=== PATIENT | male | born 1960 | race Caucasian/White ===

== ENCOUNTER 2016-10-10 08:58 | Inpatient (IN) | payer BC ==
--- NOTE | ~2016-10-10 | DS ---
Discharge Summary [facility] [address] [place]. [address] NAME: RONEY STARR : 64 STATUS : DIS IN PAT#: [id number] AGE: 56 ADM/REG DATE : 10/10/16 MR#: [id number] REPORT SERV DATE: 10/25/16 DICTATED BY: AILIN PRICE DATE: 10/24/16 REPORT STATUS : Draft TRANSCRIBED BY: ANABELL DATE: 10/24/16 Data Collection from hospitalization DISCHARGE DIAGNOSES: 1. Coronary artery disease status post coronary artery bypass grafting. 2. Ischemic cardiomyopathy (30-40%). 3. Diabetes mellitus. 4. Hypertension. 5. Hyperlipidemia. 6. Kgq-JS-yqadxuvow myocardial infarction. CONSULTATIONS: Dr. Daniel Gates. Dr. Michael Alcazar. PROCEDURES PERFORMED: 1. Cardiac catheterization, 10/10/2016. 2. Urgent coronary artery bypass grafting x6 with WISE to the LAD, reverse saphenous vein graft placed to the first diagonal vessel, right internal mammary artery placed to the ramus intermedius vessel, reverse saphenous vein graft placed to the first obtuse marginal, and reverse saphenous vein graft sequenced to the posterior descending and posterolateral branch vessel, bilateral internal mammary artery harvest, endoscopic vein harvest of the saphenous vein from the right leg, transesophageal echocardiography, 10/11/2016. 3. Carotid blood flow study, 10/10/2016. DISCHARGE MEDICATIONS: Aspirin 81 mg daily, Lipitor 40 mg at bedtime, Plavix 75 mg daily, Lasix 40 mg daily, Glucotrol 5 mg twice a day, Prinivil 5 mg daily, Glucophage 1000 mg with breakfast and supper, Lopressor 25 mg twice a day, Percocet 10/325 one tablet every four hours as needed. CONDITION AT DISCHARGE: Stable. DISPOSITION: The patient was discharged home on an 1800-calorie cardiac/diabetic diet with activities as instructed. He would follow up with Bart Dalton, 11/17/2016. He would follow up with Dr. Michael Alcazar, 11/08/2016. He would follow up with his primary care physician one week following discharge. HOSPITAL COURSE: This is a 56-year-old man, who has a history of hypertension, hyperlipidemia, and diabetes, who presented to [facility] from [facility] emergency room, where he presented around 3 a.m. with precordial chest pressure that awoke him from sleep. He said that over the past month, he had had exertion-related precordial pain that he had experienced on average two to three times per week, however, on the night prior to this admission, he awoke from sleep with a significant precordial pressure that was more severe in nature when compared to his pain over the past one month. Given the significant pain he was experiencing, he decided to present to [facility] for further evaluation and care. Immediate labs were checked and demonstrated an increase in his troponin from 0.25 at [place] to 3.3 at this time. EKG at the bedside demonstrated dynamic changes in the anterior and anterolateral leads with Wellenoid T-wave changes as well in this region. The EKG revealed sinus rhythm at 60 beats per minute with first degree AV delay, left axis Discharge Summary [id number] [place]. [address] NAME: RONEY STARR : 64 STATUS : DIS IN PAT#: [id number] AGE: 56 ADM/REG DATE : 10/10/16 MR#: [id number] REPORT SERV DATE: 10/25/16 DICTATED BY: AILIN PRICE DATE: 10/24/16 REPORT STATUS : Draft TRANSCRIBED BY: ANABELL DATE: 10/24/16 deviation, left ventricular hypertrophy with possible repolarization changes, dynamic T-wave changes in the anterior and anterolateral leads, possibly Wellenoid and Q-waves in the inferior leads. The patient was seen by Dr. Michael Alcazar. The patient was held n.p.o., felt that he should undergo coronary angiography and possible percutaneous coronary intervention. Heparin drip was going to be continued. An echocardiogram was going to be performed. He was going to be placed on an optimal medical regimen once his cardiac catheterization was completed. He was taken to the cardiac labor service representative, where he underwent the above-mentioned procedure. He tolerated this well and there were no complications. Following day, an echocardiogram was performed. Coronary arteriogram demonstrated significant three-vessel flow-limiting disease with distal total occlusion of the right coronary artery, proximal left anterior descending occlusion, 70% left main stenosis, 50% circumflex and 70% obtuse marginal as well as 75% ramus intermedius and depressed left ventricular function with ejection fraction of 35%. It was felt that he would need to undergo coronary artery bypass grafting. A carotid blood flow study was performed. The patient was taken to the operating room, where he underwent the above-mentioned procedure. He tolerated this well and there were no complications. On postop day #1, chest tubes were removed. He had a few crackles in his lung bases. Sliding scale insulin was continued. The next day, O2 was weaned down to 2 L. Chest x-ray showed small bibasilar effusions and atelectasis. He had no new complaints. He was seen by Dr. Daniel Gates regarding postop hyperglycemia. Preoperatively, his hemoglobin A1c was 8.7. He was on an insulin drip. Blood sugars had been running in the 180-200 range. The patient does not check his blood sugars at home. His diabetes was felt to be uncontrolled. It was felt that we would need to control the blood sugar less than 150 if possible in the postoperative period immediately. With the creatinine being normal, it was recommended that he go ahead and restart his metformin, and he would also be covered with Levemir. A small amount of before meal Levemir was going to be added as well to present hyperglycemia after eating. He was willing to work on his diet. He was placed on a diabetic diet. It was felt that we may need to taper the insulin incrementally in the postoperative period if his stress of surgery awaits. He was converted to subcutaneous insulin. It was felt that a 15 pounds weight loss may affect need for any insulin. It was recommended that he continue to take the metformin daily at this time. Discharge planning was performed. On 10/14/2016, his lungs were clear. His incisions looked okay. He continued to do well. Discharge instructions were given. He underwent diabetes education. Due to his improved and stable condition, he was discharged home with the above-stated instructions. Information collected by: Luz Maria Pedersen I submit the above information as my discharge summary. TG/MODL Ailin Price M.D. / [id number] CC: Discharge Summary [place] [address] [facility] [address] NAME: RONEY STARR : 64 STATUS : DIS IN PAT#: [id number] AGE: 56 ADM/REG DATE : 10/10/16 MR#: [id number] REPORT SERV DATE: 10/25/16 DICTATED BY: AILIN PRICE DATE: 10/24/16 REPORT STATUS : Draft TRANSCRIBED BY: MODL DATE: 10/24/16 Todd Pollock AMANDA DENISE Vimal Ramjee, MD
--- NOTE | ~2016-10-10 | OP ---
Record Of Operation [facility] [address] [place]. [address] NAME: RONEY STARR : 64 STATUS : ADM IN PAT#: [id number] AGE: 56 ADM/REG DATE : 10/10/16 MR#: [id number] REPORT SERV DATE: 10/12/16 DICTATED BY: AILIN PRICE DATE: 10/12/16 REPORT STATUS : Draft TRANSCRIBED BY: MODL DATE: 10/12/16 DATE OF PROCEDURE: 10/11/2016 PREOPERATIVE DIAGNOSES: 1. Coronary artery disease with gro-YJ-fldsltvvg myocardial infarction. 2. Type 2 eym-wlscwyo-kcgasbhxr diabetes mellitus. 3. Acute congestive heart failure (ejection fraction 35%) systolic. 4. Hyperlipidemia. 5. Obesity. POSTOPERATIVE DIAGNOSIS: 1. Coronary artery disease with zjh-GP-joocchkgs myocardial infarction. 2. Type 2 llj-cswhqfj-dvowurlgy diabetes mellitus. 3. Acute congestive heart failure (ejection fraction 35%) systolic. 4. Hyperlipidemia. 5. Obesity. PROCEDURES PERFORMED: 1. Urgent coronary artery bypass grafting x6, left internal mammary artery placed to the left anterior descending, reverse saphenous vein graft placed to the first diagonal vessel, right internal mammary artery placed to the ramus intermedius vessel, reverse saphenous vein graft placed to the first obtuse marginal, and reverse saphenous vein graft sequenced to the posterior descending and posterolateral branch vessels. 2. Bilateral internal mammary artery harvest. 3. Endoscopic vein harvest, saphenous vein from the right leg. 4. Transesophageal echocardiography. SURGEON: Ailin Price M.D. ASSISTANTS: Felix Knapp; Hussain Sahu; and Miryam Hays. ANESTHESIA: General with Dr. Tanner. SOCCER BALL ASSEMBLER: Dr. Michael Alcazar. INDICATIONS: This is a 56-year-old hyperlipidemic and diabetic male with no previous history of myocardial infarction or heart problems. He developed chest discomfort that woke him from sleep on the evening of . He went to [facility]. He has been having chest discomfort over the last 1 month. Increasing severity prompted his evaluation there. Troponin was found to be elevated and he requested transfer to [facility]. He was admitted with a zjh-CY-itkwasbwk myocardial infarction. He was hemodynamically stable. He underwent a cardiac catheterization which demonstrated significant three-vessel coronary disease. Ventricular function was reduced with an ejection fraction of 35%. Totally occluded LAD and an occluded right coronary artery system. We were asked to see the patient for possible urgent revascularization secondary to severe disease and huc-NR-caepujtnz myocardial infarction. We discussed operation with the patient and his family and after Record Of Operation [facility] [address] [place]. [address] NAME: RONEY STARR : 64 STATUS : ADM IN PAT#: [id number] AGE: 56 ADM/REG DATE : 10/10/16 MR#: [id number] REPORT SERV DATE: 10/12/16 DICTATED BY: AILIN PRICE DATE: 10/12/16 REPORT STATUS : Draft TRANSCRIBED BY: ANABELL DATE: 10/12/16 discussing the operation, its indications, and risks, he wished to proceed. STS predicted risk mortality is 0.6%. Morbidity mortality is 10% and this was shared with the family. FINDINGS AT OPERATION: 1. Cross-clamp time 89 minutes. Total pump time 103 minutes. 2. The LAD was less than 1.5 mm and moderately diseased. It looked like a thread on the heart catheterization. It is actually a bifid LAD. Both limbs were small. I did the largest of the 2 limbs. A 2.5 mm WISE was anastomosed to it with fair runoff. 3. The first diagonal vessel was 1.75 mm and moderately diseased. A 4 mm RSVG was anastomosed to it with good runoff. 4. The ramus intermedius was 2 mm and moderately diseased. A 2.5 mm right internal mammary artery was anastomosed to it with good runoff. The vessel, the right mammary artery was brought posterior to the aorta and through the transverse sinus. 5. The first obtuse marginal was 1.5 mm and mildly diseased. A 4 mm RSVG was anastomosed to it with good runoff. 6. The posterior descending artery was 1.75 mm and moderately diseased. A 4 mm RSVG was anastomosed to it in a qpyh-ox-erzg fashion with good runoff. 7. The posterolateral branch vessel was 2 mm and moderately diseased. At the end, the same 4 mm RSVG was anastomosed to it with good runoff. 8. The vein quality was good. All grafts had good Doppler signal at the end of the case. 9. KY demonstrated improved ventricular function up to about 45% post bypass with reduction in PA pressures. There was still residual inferior and anterior wall hypokinesis. There was no significant valvular pathology noted. PATHOLOGIC SPECIMENS: None. DESCRIPTION OF PROCEDURE: The patient was brought to the operating suite where general anesthesia was induced. Airway was secured with an endotracheal tube. Lines secured by Anesthesia. Waldron catheter was placed. The patient's chest, abdomen, groin, and legs were prepped with Hibiclens, ChloraPrep, draped with Ioban and sterile sheets. KY probe was placed by Dr. Tanner and examination carried out in my attendance as discussed above. The saphenous vein was harvested from the right leg using endoscopic technique. Briefly, the vein was cut directly down upon through a 2 cm incision and placed at the medial aspect of the right knee. Then, using the VasoView trocars, the vessel was dissected from the surrounding subcutaneous tissue and fat. The side branches were identified, ligated, and divided with cautery. A dual saphenous system was found in the right thigh and this was harvested using this endoscopic technique. Once adequate length of vein had been dissected, a counter incision made up in the groin and in the lower leg where the vein was ligated, divided, and brought through the knee incision. The vein quality from the thighs was good, however, about one-third [address] the way down the right lower leg, the vein became unacceptably small and was not utilized. The dual system vein had 1 small limb that I also felt was probably not large enough for good bypass conduit. Therefore, decision was made at that time to go ahead and preserve both mammary arteries for conduit. The leg wounds were then made hemostatic and closed in layers of absorbable suture and skin closed in a subcuticular fashion. Record Of Operation [facility] [address] [place]. [address] NAME: RONEY STARR : 64 STATUS : ADM IN [facility]#: [id number] AGE: 56 ADM/REG DATE : 10/10/16 MR#: [id number] REPORT SERV DATE: 10/12/16 DICTATED BY: AILIN PRICE DATE: 10/12/16 REPORT STATUS : Draft TRANSCRIBED BY: MODL DATE: 10/12/16 Then, a midline sternal incision was made and the sternum opened with a saw. The left hemithorax was elevated and the endothoracic fascia was incised. The side branches of the RANULFO were clipped and divided. Once the left mammary artery was completely dissected, the chest tube was placed in the left pleural cavity. The right internal mammary artery was harvested. The show retractor was reversed and the right hemithorax was elevated. The endothoracic fascia was incised on this side. Then, using identical technique the right mammary artery was dissected and side branches clipped and divided with cautery. Once the right internal mammary artery was completely dissected, the patient was anticoagulated with heparin and chest tubes were placed in both pleural cavities. Then, the RANULFO vessels were clipped and divided distally. There was good flow through both the right and left mammary vessels and their pedicles were infiltrated with papaverine. Next, the Deyvi retractor was placed in the pericardium over from the innominate vein to the diaphragm where it was T'd and tacked to the side of the chest wall. Cannulation pursestring sutures were placed and cannulation carried out in a routine manner. A retrograde cardioplegia cannula was placed in the coronary sinus. When all was in readiness, the patient was placed on cardiopulmonary bypass. Distal targets were marked out on the heart as described in the findings. Then, a heart support was placed. The aorta was crossclamped and initial dose of cold blood cardioplegia solution was given in a combination of antegrade and retrograde fashion, then a retrograde manner following proximal anastomoses. Following the first dose of cardioplegia, the heart was positioned for the posterolateral branch graft. Arteriotomy was made. The vein graft was then anastomosed to it with 7-0 Prolene. The vein graft was measured back to the posterior descending artery where another arteriotomy was made. This was a planned sequential grafting. The vein was opened proximally and a aafc-vu-wkjx saphenous coronary anastomosis was constructed with 7-0 Prolene. Then this sequential graft was measured to the ascending aorta where it was divided and anastomosed to it with a 4.5 mm punch aortotomy with 6-0 Prolene. Another dose of cardioplegia was given and the heart was positioned for the obtuse marginal graft. Arteriotomy was made. The vein graft was trimmed and anastomosed to it with 7-0 Prolene. The vein graft was measured back to the left side of the ascending aorta where it was divided. We then positioned the heart for the diagonal graft. Arteriotomy was made and the vein graft was trimmed and anastomosed to it with 7-0 Prolene. This vein graft was measured back to the left side of the ascending aorta where it was divided. Next, the proximal ends of the two vein grafts were anastomosed to 4.5 mm punch aortotomy with 6-0 Prolene. Another dose of cardioplegia was given. We then positioned the heart for the ramus intermedius graft. Arteriotomy was made. The right internal mammary artery was then brought into the middle mediastinal space through a notch in the pericardium over the SVC. Care was taken to avoid injury to the phrenic nerve. The right mammary artery pedicle was then passed posteriorly to the aorta and through the transverse sinus to lay adjacent to the ramus intermedius vessel. The RANULFO vessel was opened and anastomosed to the ramus intermedius using a running suture of 8-0 Prolene. The endothoracic fascia was tacked to the epicardium. Another dose of cardioplegia was given and we then positioned the heart for the LAD graft. Warming was begun. Record Of Operation [facility] [address] [place]. [address] NAME: RONEY STARR : 64 STATUS : ADM IN [facility]#: [id number] AGE: 56 ADM/REG DATE : 10/10/16 MR#: [id number] REPORT SERV DATE: 10/12/16 DICTATED BY: AILIN PRICE DATE: 10/12/16 REPORT STATUS : Draft TRANSCRIBED BY: ANABELL DATE: 10/12/16 The LAD system was a bifid system. The more lateral of the two branches was the largest and this was bypassed. Arteriotomy was made and the left internal mammary artery was brought through a notch in the pericardium over the pulmonary artery. The RANULFO was opened and anastomosed to the LAD with running suture of 8-0 Prolene. The endothoracic fascia was tacked to epicardium. The patient was placed in Trendelenburg and a final dose of warm blood cardioplegia was given in a retrograde fashion. Ventricular and atrial pacing wires were placed. Following the last dose of cardioplegia and deairing of the aorta, the aortic cross clamp was removed. The distal and proximal anastomoses were inspected and made hemostatic. Doppler demonstrated good flow through the grafts. Ventilation was begun and the heart was paced in an AV sequential fashion at a rate of 80. Low-dose dobutamine was started as an inotrope. The heart was allowed to rest for several minutes on the bypass pump. When the heart demonstrated good contractility, it was allowed to fill and eject. When deairing was completed, the patient was taken out of Trendelenburg and the ascending aortic vent removed and these pursestring sutures tied and reinforced. The patient was then weaned from cardiopulmonary bypass with inotropic support. The venous cannula removed and these pursestring sutures tied. KY examination demonstrated improved ventricular function. There was no significant valvular pathology seen. Protamine was administered by Anesthesia and following a period of hemodynamic stability, the aortic cannula was removed and these pursestring sutures tied and reinforced. The patient continued to do well and chest was irrigated copiously with saline. Meticulous hemostasis was obtained. Hemasorb was placed along the cut edge of the sternum. Once hemostasis was assured, the pericardium was draped over the anterior surface of the heart and tacked into position. Doppler demonstrated good flow through the grafts following protamine administration. Then, chest tubes were placed and the sternum reapproximated with 8 sternal wires. The clavipectoral fascia and linea alba closed with #1 StrataFix. The subcutaneous tissue was closed with 2-0 StrataFix. Skin closed in subcuticular fashion. The patient tolerated the procedure well. There were no complications. Sponge and needle counts were correct. DISPOSITION: The patient left intubated, sedated, and transported to the intensive care unit in stable condition. LOR/ANABELL Ailin Record Of Operation [facility] [address] [place]. [address] NAME: RONEY STARR : 64 STATUS : ADM IN [facility]#: [id number] AGE: 56 ADM/REG DATE : 10/10/16 MR#: [id number] REPORT SERV DATE: 10/12/16 DICTATED BY: AILIN PRICE DATE: 10/12/16 REPORT STATUS : Draft TRANSCRIBED BY: ANABELL DATE: 10/12/16 Todd Price / [id number] CC: Todd Pollock MD
--- NOTE | ~2016-10-10 | HP ---
History And Physical [place] [id number] [facility] [place]. [address] NAME: RONEY STARR : 64 STATUS : ADM IN [facility]#: [id number] AGE: 56 ADM/REG DATE : 10/10/16 MR#: [id number] REPORT SERV DATE: 10/10/16 DICTATED BY: MICHAEL PAGAN DATE: 10/10/16 REPORT STATUS : Draft TRANSCRIBED BY: MODSue DATE: 10/10/16 DATE OF ADMISSION: 10/10/2016 REASON FOR ADMISSION: NSTEMI. HISTORY OF PRESENT ILLNESS: Mr. Starr is a pleasant 56-year-old gentleman with a history of hypertension, hyperlipidemia, and diabetes, who presents to [facility] from [facility] where he presented earlier this morning at around 3 a.m. with precordial chest pressures that woke him from sleep. He states that over the past one month, he has had exertion- related precordial pains that he has experienced on average two-three times per week. However, last night, he awoke from sleep with significant precordial pressures that were more severe in nature when compared to his pains over the past one month. Given the significant pain he was experiencing, he decided to present to [facility] for further evaluation and care. He arrived late this morning, and immediate labs that were checked demonstrated increase in his troponin from 0.25 at [facility] to 3.3 this morning here at [facility]. An EKG done at the bedside while I was interviewing him demonstrates dynamic changes in the anterior and anterolateral leads with Wellenoid T-wave changes as well in this region. PAST MEDICAL HISTORY: As above. ALLERGIES: NONE. SOCIAL HISTORY: The patient lives at home with his and children. He functions independently under normal circumstances. He denies doing drugs, smoking, or drinking alcohol. FAMILY HISTORY: Noncontributory for premature cardiovascular disease. HOME MEDICATIONS: Include. 1. Aspirin 81 mg p.o. daily. 2. Metformin 1000 mg p.o. b.i.d. 3. Crestor 10 mg p.o. daily. PHYSICAL EXAMINATION: VITAL SIGNS: Blood pressure 140/80, pulse in the 60-70 range, sinus; afebrile. GENERAL: Well developed, well nourished, no acute distress. NEURO: Awake, alert and oriented x3; no focal deficits, appropriate mood. HEENT: Moist mucous membranes, anicteric sclerae, no nasal discharge. NECK: No JVD, no carotid bruit. LUNGS: Clear to auscultation bilaterally, no wheezes, rales or rhonchi. CV: Regular rhythm, normal S1/S2, no murmurs, rubs or gallops. ABD: Soft, non-tender, non-distended, no rebound or guarding. EXT: No pitting edema, normal distal pulses. SKIN: Warm, dry and intact; no rash. History And Physical [address] [address] NAME: RONEY STARR : 64 STATUS : ADM IN [facility]#: [id number] AGE: 56 ADM/REG DATE : 10/10/16 MR#: [id number] REPORT SERV DATE: 10/10/16 DICTATED BY: MICHAEL PAGAN DATE: 10/10/16 REPORT STATUS : Draft TRANSCRIBED BY: ANABELL DATE: 10/10/16 PERTINENT TEST FINDINGS: Troponin 3.3, potassium 3.7 (outside hospital), creatinine 0.9 (outside hospital), magnesium 2.8, CK-MB 5.2 at outside hospital. White blood cell count 5.7, hemoglobin 15.1, platelets 242. Troponin at [facility] was 0.25. EKG shows sinus rhythm at 60 beats per minute with first-degree AV delay, left axis deviation, LVH with possible repolarization changes, dynamic T-wave changes in the anterior and anterolateral leads, possibly Wellenoid, and Q-waves in the inferior leads. IMPRESSION AND PLAN: Mr. Starr is a pleasant 56-year-old gentleman with a history of diabetes, obesity, hypertension, and hyperlipidemia, who presents with precordial chest pressures that woke him from sleep last night in the setting of elevated troponins secondary to non-ST segment elevation myocardial infarction. Accordingly, I had the following plan, which is to include n.p.o. now. Pre-cath orders. Coronary angiography with possible PCI. Continuation of heparin drip. Check an echocardiogram. I will put him on an optimal medical regimen once his catheterization is complete. DARREN/ANABELL Michael Pagan MD / [id number] CC: Benny Schroeder M.D. UNKNOWN
--- NOTE | ~2016-10-10 | CN ---
Consultation Report [facility] [address] [place]. [address] NAME: RONEY STARR : 64 STATUS : ADM IN PAT#: [id number] AGE: 56 ADM/REG DATE : 10/10/16 MR#: [id number] REPORT SERV DATE: 10/13/16 DICTATED BY: LASHA CHAVEZ DATE: 10/13/16 REPORT STATUS : Draft TRANSCRIBED BY: MODL DATE: 10/13/16 MEDICAL CONSULTATION DATE OF CONSULTATION: 10/13/2016 REASON FOR CONSULTATION: Hyperglycemia, postop. HISTORY OF PRESENT ILLNESS: This is a 56-year-old white male, obese, diabetic, that does not check his blood sugar at home. His hemoglobin A1c was 8.7 preoperatively. He has undergone CABG, and has recovered now out to the floor. He is still on insulin drip. He has had 2 units/hour. His blood sugars have been running in the 180 to 200 range for the last 24 hours. I am asked to help with insulin regimen. He is followed by nurse practitioner, Beni in [place]. The overseeing physician is Dr. Taty Soliman. He does not check his blood sugar at home. He does not know what his fasting or postprandial blood sugars might have been in the past. 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 He gets no exercise. He does not smoke or drink. PAST MEDICAL HISTORY: He presented to the hospital with an elevated troponin level with a [id number] CT. He underwent cardiac catheterization, now CABG. They were unable to use the saphenous vein graft from his right leg. He does have some hyperlipidemia and diabetes type 2. HOME MEDICATIONS: Include the following: Aspirin 81 mg p.o. daily, metformin 1000 mg p.o. b.i.d., and Crestor 10 mg p.o. daily. ALLERGIES: INCLUDE SULFA ALLERGIES. SOCIAL HISTORY: He is . Lives with his . 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 Now works at the [employer]. 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 He does not take any alcohol or smokes cigarettes. He has two children, who are alive and well. He does not take illicit drugs. The patient does not attend gnosticist much. FAMILY HISTORY: High blood pressure and diabetes runs in the family. Consultation Report [place] [address] [place]. [address] NAME: RONEY STARR : 64 STATUS : ADM IN PAT#: [id number] AGE: 56 ADM/REG DATE : 10/10/16 MR#: [id number] REPORT SERV DATE: 10/13/16 DICTATED BY: LASHA CHAVEZ DATE: 10/13/16 REPORT STATUS : Draft TRANSCRIBED BY: ANABELL DATE: 10/13/16 REVIEW OF SYSTEMS: He has had no shortness of breath. No hemoptysis or hematuria, fever, chills, or night sweats in the postoperative period. Prior to this, he was treated for his high cholesterol, previously saw Dr. Gil Owen. He has had no fever, chills, or night sweats. He states he did not pay much attention to his health. He has been seen here by Dr. Michael lAcazar and has been managed in the postoperative period by him. I am asked by Bart Dalton, nurse practitioner, to assist with the diabetes management as well. The remainder of the review of systems is negative. He does have a slight amount of pain behind his right knee where the saphenous vein graft is harvested. PHYSICAL EXAMINATION: VITAL SIGNS: Blood pressure 118/62, with a heart rate of 76, respiratory rate 18, and temperature was 99. HEENT: EOMI. Sclerae clear. Conjunctivae pink. NECK: No bruit without any JVD. CHEST: The sternal wound dressing is clean and dry. LUNGS: Clear to A and P. HEART: Regular. S1, S2 without murmur, gallop, or click. ABDOMEN: Soft, obese, and nontender. Bowel sounds are positive. EXTREMITIES: Have no residual edema. NEUROLOGIC: Withdraws to plantar stimulation. Pre Billing Specialist is equal and symmetric. Coordination is intact. He has no tremor. He is symmetric neurologically bilaterally. LABORATORY DATA: His creatinine was 0.86, now 0.96. Sodium 135, potassium 4.1, and glucose was 192. His hemoglobin is 12.2, hematocrit 36.9, white count 11.6, and platelets of 204. His troponin was 3.26 on 10/10/2016. Blood sugars are reviewed and have run 169, 155, 193, 206, 203, 187, 201, and 190 on 2 mL/minute or 2 units/hour. ASSESSMENT: 1. Diabetes, uncontrolled. We will need to control the blood sugar, less than 150 if possible in the postoperative period immediately. With the creatinine being normal, I recommend he can go ahead and restart his metformin, and also cover with the Levemir at 40 units. He is taking 48 units in for 24 hours now. We will add a small amount of a.c. Levemir as well to prevent hyperglycemia after eating. He is willing to work on his diet, 1800 calorie ADA diet and is restricted, and we will follow during the hospitalization. We may need to taper the insulin incrementally in the postoperative period if his stress of surgery abates. 2. Postop CABG. Followed by Dr. Price. 3. Ischemic cardiomyopathy. Ejection fraction 30% to 40% by [facility]. 4. Hypertension. Consultation Report [address] [address] NAME: RONEY STARR : 64 STATUS : ADM IN [facility]#: [id number] AGE: 56 ADM/REG DATE : 10/10/16 MR#: [id number] REPORT SERV DATE: 10/13/16 DICTATED BY: LASHA CHAVEZ DATE: 10/13/16 REPORT STATUS : Draft TRANSCRIBED BY: ANABELL DATE: 10/13/16 5. Hyperlipidemia. 6. Cardiac arrhythmia. Now on amiodarone 400 mg p.o. q.12 hours. PLAN: Converting to subcutaneous insulin and decreasing the amount of sugar checking we are doing. A 15 pounds weight loss may affect loss of need for any insulin. Although, I recommended to him that he continue to take the metformin daily. He will follow back up with Dr. Mohinder Soliman's nurse practitioner Beni in [place] after discharge. JESI/ANABELL Lasha Chavez M.D. / [id number] CC: Todd Pollock, M.D. MD Mohinder Mckee M.D.
--- NOTE | ~2016-10-10 | CN ---
Consultation Report [facility] [address] [place]. [address] NAME: RONEY STARR : 64 STATUS : ADM IN PAT#: [id number] AGE: 56 ADM/REG DATE : 10/10/16 MR#: [id number] REPORT SERV DATE: 10/10/16 DICTATED BY: BART DELEON DATE: 10/10/16 REPORT STATUS : Draft TRANSCRIBED BY: MODSue DATE: 10/10/16 CONSULTATION NOTE DATE OF CONSULTATION: REASON FOR CONSULTATION: Three-vessel coronary artery disease with recent non-ST elevation myocardial infarction, consideration for urgent coronary artery bypass grafting. CHIEF COMPLAINT: Chest pain early this morning. HISTORY OF PRESENT ILLNESS: This is a 56-year-old gentleman, diabetic, who reports approximately one month history of exertional symptoms of chest discomfort. This resolves with rest. He has not had any associated shortness of breath. No diaphoresis, nausea or vomiting. No palpitations. No syncope or near syncope. He denies any nocturnal symptoms. He was awakened early this morning about 1 a.m. by severe chest pain that was unremitting and radiated across from one shoulder across his chest to the other. He denies any shortness of breath. He did have some diaphoresis. No nausea or vomiting. He did not have any palpitations. The pain was severe and he went to the emergency department at [facility] and there had elevated troponin I of 0.25. His chest discomfort was relieved with nitroglycerin. He was transferred to [facility] for further evaluation and at [facility], his troponin I elevated to 3.26. A 12-lead EKG was remarkable for sinus rhythm with first- degree AV block, Q-waves in the inferior leads consistent with previous inferior infarct, and T-wave abnormality in the lateral leads. He underwent coronary arteriogram that demonstrated significant three-vessel flow-limiting disease with distal total occlusion of the right coronary artery, proximal left anterior descending occlusion, 70% left main stenosis, 50% circumflex and 70% obtuse marginal, 75% ramus intermedius, and depressed left ventricular function with ejection fraction of 35%. We were asked to see for urgent coronary artery bypass grafting. PRIOR MEDICAL HISTORY: 1. Type 2 diabetes mellitus, controlled on oral antidiabetic agents. 2. Chest pain. 3. Hyperlipidemia. PRIOR SURGICAL HISTORY: Significant only for prior epidural steroid injection. ALLERGIES: POSITIVE FOR SULFONAMIDE ANTIBIOTICS. MEDICATIONS: Include aspirin daily, metformin 1000 mg p.o. with breakfast and supper, rosuvastatin 10 mg p.o. daily. FAMILY HISTORY: Significant for mother and father with coronary artery disease when they Consultation Report [place] [address] [place]. [address] NAME: RONEY STARR : 64 STATUS : ADM IN [facility]#: [id number] AGE: 56 ADM/REG DATE : 10/10/16 MR#: [id number] REPORT SERV DATE: 10/10/16 DICTATED BY: BART DELEON DATE: 10/10/16 REPORT STATUS : Draft TRANSCRIBED BY: MODSue DATE: 10/10/16 were in their 80s. His mother actually had heart surgery by Dr. Price. SOCIAL HISTORY: He is a lifelong nonsmoker and occasionally drinks beer. He denies the use of illicit drugs. 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 REVIEW OF SYSTEMS: GENERAL: Negative for any recent weight loss, fatigue, malaise, fevers, chills, etc. RESPIRATORY: Negative for shortness of breath. Negative for hemoptysis or wheezing. CV: As above. GI: Negative. : Negative. Otherwise, negative or as above. PHYSICAL EXAMINATION: GENERAL: He is a pleasant, overweight, white male, in no acute distress. Weight is 103.92, height 182.8 cm. VITAL SIGNS: Blood pressure 108/67, temperature 98.6, pulse 58 and regular, respirations 14, saturation 97%. HEENT: Normocephalic, atraumatic. Pupils equal, round, reactive to light and accommodation, sclerae clear, conjunctivae pink. EOMs intact. Oral and buccal mucosa pink and moist, no lesions or masses, and teeth are in good condition. Mallampati class 1 airway. NECK: Supple. No restricted range of motion. No carotid bruits, no jugular venous distention. CHEST: Clear to auscultation, no use of accessory muscles, no chest wall tenderness. No deformity. BREASTS: Not examined. CV: Regular rate and rhythm without murmur or rub. He has palpable symmetric central peripheral pulses, no clubbing, cyanosis, or edema. ABDOMEN: Soft, obese, nontender with normoactive bowel sounds. No hepatosplenomegaly. /RECTAL: Declined. MUSCULOSKELETAL: No kyphoscoliosis. No asymmetry. NEUROLOGIC: He is alert and oriented to day, date, place, and situation. Speech is clear, fluent. No focal neurologic deficits. No tremors. SKIN, HAIR, AND NAILS: Good hygiene. No lesions, masses, or rashes. DATA: His coronary arteriogram which I reviewed today showing disease as described with inferior akinesis and no evidence of valvulopathy on ventriculogram. His EKG as mentioned. Lipid profile significant for total cholesterol 241, HDL is 57, LDL elevated at 159, and triglycerides normal at 128. His electrolyte profile is unremarkable. CBC shows WBCs 5.3, hemoglobin 13.5 g, hematocrit 39.8%, platelets 214,000. IMPRESSION: Three-vessel flow-limiting coronary artery disease including left main stenosis, with recent non-ST elevation myocardial infarction. We talked with him at length today Consultation Report [address] [address] NAME: RONEY STARR : 64 STATUS : ADM IN [facility]#: [id number] AGE: 56 ADM/REG DATE : 10/10/16 MR#: [id number] REPORT SERV DATE: 10/10/16 DICTATED BY: BART DELEON DATE: 10/10/16 REPORT STATUS : Draft TRANSCRIBED BY: ANABELL DATE: 10/10/16 about possible coronary artery bypass grafting, indications, benefits, and risks which are serious including but not limited to: Bleeding, need for blood or blood product transfusion and their attendant risks, infection including deep sternal infection, mediastinitis, damage to the kidneys including kidney failure and dialysis, damage to the liver, the lungs, heart attack, stroke, abnormal heart rhythm, pain, and even . The patient indicates his understanding and is willing to proceed. Using Society of thoracic Surgeons database for risk stratification, his projected mortality risk was 0.646%, morbidity or mortality 10.183%. This was shared with the patient's family today. We appreciate very much the opportunity to participate in his care and plan tentatively for surgical revascularization tomorrow. In the interim, we will check carotid ultrasound. We appreciate the opportunity to participate in this gentleman's care. CHACHO/ANABELL Bart Deleon N.P. / [id number] CC: Benny Schroeder M.D.
[2016-10-10] MEDS ORDERED: ASAB PO (09:21)
[2016-10-10] MEDS ORDERED: CRESTOR10 PO (09:21)
[2016-10-10] MEDS ORDERED: GLUCOPHAGE1000 MG PO (09:23)
[2016-10-10 10:33] LABS: CK-MB 15.9 NG/ML; CKMB INDEX (NOT ORD) 5.6; CPK 284 U/L (0-200); TROPONIN I 3.26 NG/ML (<0.05)
[2016-10-10 11:13] LABS: BASOPHILS 0.6 %; BASOPHILS ABSOLUTE 0.03 10/3/uL (0.0-0.16); EOSINOPHILS 1.7 %; EOSINOPHILS ABSOLUTE 0.09 10/3/uL (0.0-0.53); HEMATOCRIT 39.8 % (40.0-51.0); HEMOGLOBIN 13.5 g/dL (13.6-17.8); IMMATURE GRANULOCYTES 0.2 %; IMMATURE GRANULOCYTES ABSOLUTE 0.01 10/3/uL (0.0-0.11); LYMPHOCYTES 31.2 %; LYMPHOCYTES ABSOLUTE 1.65 10/3/uL (0.67-4.30); MEAN CORPUS HGB CONC 33.9 g/dL (32.0-36.0); MEAN CORPUSCULAR HEMOGLOB 28.5 pg (26.0-34.0); MEAN PLATELET VOLUME 9.9 fL (9.2-13.0); MONOCYTES 6.8 %; MONOCYTES ABSOLUTE 0.36 10/3/uL (0.21-1.20); NEUTROPHILS 59.5 %; NEUTROPHILS ABSOLUTE 3.15 10/3/uL (2.02-8.40); PLATELET COUNT 214 10/3/uL (150-400); RBC DISTRIBUTION WIDTH 14.2 % (12.0-16.0); RED CELL COUNT 4.74 10/6/uL (4.7-6.1); WHITE BLOOD CELLS 5.3 10/3/uL (4.5-10.5)
[2016-10-10 11:14] LABS: MANUAL DIFF NO %
[2016-10-10 11:20] LABS: CALCIUM, SERUM 8.8 MG/DL (8.5-10.4); CHLORIDE, SERUM 107 MMOL/L (96-112); CHOL/HDL RATIO(NOT ORDER) 4.2 (0-5); CHOLESTEROL 241 MG/DL (< 200); CREATININE 0.78 MG/DL (0.70-1.30); GFR AFRICAN AMERICAN 119 ML/MIN (>=60); GFR NON AFRICAN AMERICAN 102 ML/MIN (>=60); HDL CHOLESTEROL 57 MG/DL (> 39); LDL CHOLESTEROL 159 MG/DL (< 130); NON-HDL CHOLESTEROL 184 MG/DL (< 160); POTASSIUM, SERUM 4.4 MMOL/L (3.5-5.3); SODIUM, SERUM 139 MMOL/L (135-148); TRIGLYCERIDE 128 MG/DL (< 150)
[2016-10-10 11:21] LABS: BUN (BLOOD UREA NITROGEN) 15 MG/DL (6-23); CO2 (CARBON DIOXIDE) 22 MMOL/L (24-34); GLUCOSE, SERUM 213 MG/DL (60-99)
[2016-10-10 20:35] LABS: ASCORBIC ACID (UR NOT ORDER) NEG (NEG); BILIRUBIN, URINE NEGATIVE (NEG); KETONE, URINE NEGATIVE (NEG); LEUKOCYTE ESTERASE(NOT OR NEG (NEG); WBC (NOT ORDERED) (RFLEX) < 1 (0-5)
[2016-10-11 06:52] LABS: BASOPHILS 0.3 %; BASOPHILS ABSOLUTE 0.02 10/3/uL (0.0-0.16); EOSINOPHILS 1.7 %; HEMATOCRIT 42.2 % (40.0-51.0); HEMOGLOBIN 14.1 g/dL (13.6-17.8); IMMATURE GRANULOCYTES 0.3 %; IMMATURE GRANULOCYTES ABSOLUTE 0.02 10/3/uL (0.0-0.11); LYMPHOCYTES 28.3 %; LYMPHOCYTES ABSOLUTE 1.71 10/3/uL (0.67-4.30); MEAN CORPUS HGB CONC 33.4 g/dL (32.0-36.0); MEAN CORPUSCULAR HEMOGLOB 28.6 pg (26.0-34.0); MEAN CORPUSCULAR VOLUME 85.6 fL (80-100); MEAN PLATELET VOLUME 9.9 fL (9.2-13.0); MONOCYTES 8.3 %; NEUTROPHILS 61.1 %; PLATELET COUNT 206 10/3/uL (150-400); RBC DISTRIBUTION WIDTH 14.1 % (12.0-16.0); RED CELL COUNT 4.93 10/6/uL (4.7-6.1); WHITE BLOOD CELLS 6.1 10/3/uL (4.5-10.5)
[2016-10-11 06:55] LABS: MANUAL DIFF NO %
[2016-10-11 06:57] LABS: INTERNATIONAL NORMAL RATI 1.1 UNITS (-); PROTIME (NOT ORD) 14.3 SEC (12.0-14.5)
[2016-10-11 06:58] LABS: PARTIAL THROMBO TIME 74.3 SEC (22.5-37.2)
[2016-10-11 07:06] LABS: % IRON SAT 23 % (20-50); ALKALINE PHOSPHATASE 98 U/L (45-117); BUN (BLOOD UREA NITROGEN) 13 MG/DL (6-23); CALCIUM, SERUM 8.5 MG/DL (8.5-10.4); CHLORIDE, SERUM 105 MMOL/L (96-112); CO2 (CARBON DIOXIDE) 25 MMOL/L (24-34); CREATININE 0.82 MG/DL (0.70-1.30); GFR AFRICAN AMERICAN 116 ML/MIN (>=60); GFR NON AFRICAN AMERICAN 100 ML/MIN (>=60); GLOBULIN 3.6 G/DL (2.5-4.1); GLUCOSE, SERUM 208 MG/DL (60-99); IRON BINDING CAPACITY 313 MCG/DL (250-450); IRON, SERUM 73 MCG/DL (35-150); SGOT(AST) 61 U/L (5-40); SGPT(ALT) 30 U/L (5-65); SODIUM, SERUM 139 MMOL/L (135-148); TOTAL BILIRUBIN 0.6 MG/DL (0-1.2); TOTAL PROTEIN 7.1 G/DL (6.0-8.5)
[2016-10-11 07:07] LABS: ALBUMIN 3.5 G/DL (3.5-5.0)
[2016-10-11 19:48] LABS: BE (BASE EXCESS) -2.1 MEQ/L (0 +/- 2.5); CARBOXYHEMOGLOBIN 0.5 % (0-3); HCO3 (ACTUAL BICARBONATE) 23.5 MEQ/L (23-27); HEMOBLOGIN CONTENT 13.7 G/DL (14-18); INSTRUMENT SERIAL # 11843; METHEMOGLOBIN 0.3 % (0-3); MODE SIMV; O2 CONTENT 18.8 VOL% (18-24); OPERATOR ID 13415; PCO2 (CO2 TENSION) 43 MMHG (35-45); PO2 (O2 TENSION) 120 MMHG (79-93); SAMPLE Arterial; TIDAL VOLUME 800 ML; pH 7.36 (7.37-7.43)
[2016-10-11 20:22] LABS: BASOPHILS 0.1 %; BASOPHILS ABSOLUTE 0.01 10/3/uL (0.0-0.16); EOSINOPHILS 0.3 %; EOSINOPHILS ABSOLUTE 0.04 10/3/uL (0.0-0.53); HEMATOCRIT 38.8 % (40.0-51.0); HEMOGLOBIN 13.2 g/dL (13.6-17.8); IMMATURE GRANULOCYTES 0.5 %; IMMATURE GRANULOCYTES ABSOLUTE 0.07 10/3/uL (0.0-0.11); LYMPHOCYTES 9.9 %; MANUAL DIFF NO %; MEAN CORPUSCULAR HEMOGLOB 28.8 pg (26.0-34.0); MEAN CORPUSCULAR VOLUME 84.7 fL (80-100); MEAN PLATELET VOLUME 9.4 fL (9.2-13.0); MONOCYTES 4.8 %; MONOCYTES ABSOLUTE 0.63 10/3/uL (0.21-1.20); NEUTROPHILS 84.4 %; NEUTROPHILS ABSOLUTE 11.14 10/3/uL (2.02-8.40); PLATELET COUNT 139 10/3/uL (150-400); RBC DISTRIBUTION WIDTH 13.6 % (12.0-16.0); RED CELL COUNT 4.58 10/6/uL (4.7-6.1); WHITE BLOOD CELLS 13.2 10/3/uL (4.5-10.5)
[2016-10-11 20:27] LABS: INTERNATIONAL NORMAL RATI 1.4 UNITS (-); PARTIAL THROMBO TIME 30.9 SEC (22.5-37.2)
[2016-10-11 20:32] LABS: BUN (BLOOD UREA NITROGEN) 13 MG/DL (6-23); CALCIUM, SERUM 9.4 MG/DL (8.5-10.4); CHLORIDE, SERUM 111 MMOL/L (96-112); CO2 (CARBON DIOXIDE) 26 MMOL/L (24-34); GFR AFRICAN AMERICAN 88 ML/MIN (>=60); GFR NON AFRICAN AMERICAN 76 ML/MIN (>=60); POTASSIUM, SERUM 3.7 MMOL/L (3.5-5.3); SODIUM, SERUM 144 MMOL/L (135-148)
[2016-10-11 20:33] LABS: GLUCOSE, SERUM 121 MG/DL (60-99); PROTIME (NOT ORD) 16.6 SEC (12.0-14.5)
[2016-10-11 23:28] LABS: HEMATOCRIT 37.7 % (40.0-51.0); HEMOGLOBIN 12.9 g/dL (13.6-17.8)
[2016-10-11 23:39] LABS: BUN (BLOOD UREA NITROGEN) 14 MG/DL (6-23); CALCIUM, SERUM 8.6 MG/DL (8.5-10.4); CHLORIDE, SERUM 109 MMOL/L (96-112); CO2 (CARBON DIOXIDE) 25 MMOL/L (24-34); CREATININE 0.86 MG/DL (0.70-1.30); GFR AFRICAN AMERICAN 114 ML/MIN (>=60); GFR NON AFRICAN AMERICAN 98 ML/MIN (>=60); GLUCOSE, SERUM 145 MG/DL (60-99); POTASSIUM, SERUM 4.3 MMOL/L (3.5-5.3); SODIUM, SERUM 141 MMOL/L (135-148)
[2016-10-12 00:55] LABS: CARBOXYHEMOGLOBIN 0.2 % (0-3); DEVICE NC; HCO3 (ACTUAL BICARBONATE) 21.7 MEQ/L (23-27); HEMOBLOGIN CONTENT 13.5 G/DL (14-18); INSTRUMENT SERIAL # 11843; METHEMOGLOBIN 0.2 % (0-3); O2 CONTENT 17.3 VOL% (18-24); OPERATOR ID 13415; PCO2 (CO2 TENSION) 34 MMHG (35-45); PO2 (O2 TENSION) 61 MMHG (79-93); SAMPLE Arterial; pH 7.42 (7.37-7.43)
[2016-10-12 04:15] LABS: BASOPHILS 0 %; EOSINOPHILS 0 %; HEMATOCRIT 37.3 % (40.0-51.0); HEMOGLOBIN 12.7 g/dL (13.6-17.8); IMMATURE GRANULOCYTES 0.5 %; IMMATURE GRANULOCYTES ABSOLUTE 0.05 10/3/uL (0.0-0.11); LYMPHOCYTES 4.2 %; LYMPHOCYTES ABSOLUTE 0.45 10/3/uL (0.67-4.30); MEAN CORPUSCULAR HEMOGLOB 28.6 pg (26.0-34.0); MEAN PLATELET VOLUME 9.6 fL (9.2-13.0); MONOCYTES 5.8 %; MONOCYTES ABSOLUTE 0.62 10/3/uL (0.21-1.20); NEUTROPHILS 89.5 %; NEUTROPHILS ABSOLUTE 9.58 10/3/uL (2.02-8.40); RBC DISTRIBUTION WIDTH 13.6 % (12.0-16.0); RED CELL COUNT 4.44 10/6/uL (4.7-6.1); WHITE BLOOD CELLS 10.7 10/3/uL (4.5-10.5)
[2016-10-12 04:17] LABS: MANUAL DIFF NO %; PLATELET COUNT 182 10/3/uL (150-400)
[2016-10-12 04:27] LABS: BUN (BLOOD UREA NITROGEN) 16 MG/DL (6-23); CALCIUM, SERUM 8.4 MG/DL (8.5-10.4); CHLORIDE, SERUM 110 MMOL/L (96-112); CO2 (CARBON DIOXIDE) 22 MMOL/L (24-34); CREATININE 0.87 MG/DL (0.70-1.30); GFR AFRICAN AMERICAN 113 ML/MIN (>=60); GFR NON AFRICAN AMERICAN 98 ML/MIN (>=60); POTASSIUM, SERUM 4.2 MMOL/L (3.5-5.3); SODIUM, SERUM 142 MMOL/L (135-148)
[2016-10-12 04:28] LABS: GLUCOSE, SERUM 92 MG/DL (60-99)
[2016-10-12 17:07] LABS: HEMATOCRIT 36.7 % (40.0-51.0); HEMOGLOBIN 12.1 g/dL (13.6-17.8)
[2016-10-13 05:02] LABS: BASOPHILS 0.1 %; BASOPHILS ABSOLUTE 0.01 10/3/uL (0.0-0.16); EOSINOPHILS 0 %; HEMATOCRIT 36.9 % (40.0-51.0); HEMOGLOBIN 12.2 g/dL (13.6-17.8); IMMATURE GRANULOCYTES 0.3 %; IMMATURE GRANULOCYTES ABSOLUTE 0.04 10/3/uL (0.0-0.11); LYMPHOCYTES 10.5 %; LYMPHOCYTES ABSOLUTE 1.22 10/3/uL (0.67-4.30); MEAN CORPUS HGB CONC 33.1 g/dL (32.0-36.0); MEAN CORPUSCULAR HEMOGLOB 28.6 pg (26.0-34.0); MEAN CORPUSCULAR VOLUME 86.4 fL (80-100); MEAN PLATELET VOLUME 10.1 fL (9.2-13.0); MONOCYTES 11.5 %; MONOCYTES ABSOLUTE 1.34 10/3/uL (0.21-1.20); NEUTROPHILS 77.6 %; NEUTROPHILS ABSOLUTE 9.03 10/3/uL (2.02-8.40); PLATELET COUNT 201 10/3/uL (150-400); RBC DISTRIBUTION WIDTH 14.8 % (12.0-16.0); RED CELL COUNT 4.27 10/6/uL (4.7-6.1); WHITE BLOOD CELLS 11.6 10/3/uL (4.5-10.5)
[2016-10-13 05:10] LABS: MANUAL DIFF NO %
[2016-10-13 05:22] LABS: BUN (BLOOD UREA NITROGEN) 19 MG/DL (6-23); CALCIUM, SERUM 8.6 MG/DL (8.5-10.4); CREATININE 0.96 MG/DL (0.70-1.30); GFR AFRICAN AMERICAN 103 ML/MIN (>=60); GFR NON AFRICAN AMERICAN 89 ML/MIN (>=60)
[2016-10-13 05:23] LABS: CHLORIDE, SERUM 98 MMOL/L (96-112); CO2 (CARBON DIOXIDE) 27 MMOL/L (24-34); GLUCOSE, SERUM 192 MG/DL (60-99); POTASSIUM, SERUM 4.1 MMOL/L (3.5-5.3); SODIUM, SERUM 135 MMOL/L (135-148)
[2016-10-14 06:37] LABS: BASOPHILS 0.1 %; BASOPHILS ABSOLUTE 0.01 10/3/uL (0.0-0.16); EOSINOPHILS 0.2 %; EOSINOPHILS ABSOLUTE 0.02 10/3/uL (0.0-0.53); HEMATOCRIT 34.7 % (40.0-51.0); HEMOGLOBIN 11.6 g/dL (13.6-17.8); IMMATURE GRANULOCYTES 0.4 %; IMMATURE GRANULOCYTES ABSOLUTE 0.04 10/3/uL (0.0-0.11); LYMPHOCYTES 13.6 %; LYMPHOCYTES ABSOLUTE 1.37 10/3/uL (0.67-4.30); MEAN CORPUS HGB CONC 33.4 g/dL (32.0-36.0); MEAN CORPUSCULAR HEMOGLOB 28.8 pg (26.0-34.0); MEAN CORPUSCULAR VOLUME 86.1 fL (80-100); MEAN PLATELET VOLUME 9.8 fL (9.2-13.0); MONOCYTES 13.7 %; MONOCYTES ABSOLUTE 1.38 10/3/uL (0.21-1.20); NEUTROPHILS ABSOLUTE 7.26 10/3/uL (2.02-8.40); PLATELET COUNT 197 10/3/uL (150-400); RBC DISTRIBUTION WIDTH 14.5 % (12.0-16.0); RED CELL COUNT 4.03 10/6/uL (4.7-6.1); WHITE BLOOD CELLS 10.1 10/3/uL (4.5-10.5)
[2016-10-14 06:46] LABS: CALCIUM, SERUM 8.6 MG/DL (8.5-10.4); CHLORIDE, SERUM 96 MMOL/L (96-112); CO2 (CARBON DIOXIDE) 28 MMOL/L (24-34); CREATININE 0.86 MG/DL (0.70-1.30); GFR AFRICAN AMERICAN 114 ML/MIN (>=60); GFR NON AFRICAN AMERICAN 98 ML/MIN (>=60); GLUCOSE, SERUM 190 MG/DL (60-99); SODIUM, SERUM 134 MMOL/L (135-148)
[2016-10-14 06:48] LABS: MANUAL DIFF NO %
[2016-10-14 06:52] LABS: BUN (BLOOD UREA NITROGEN) 24 MG/DL (6-23)
[2016-10-14] MEDS ORDERED: GLUCOTROL5 PO (09:58)
[2016-10-14] MEDS ORDERED: LIPITOR40 PO (09:59)
[2016-10-14] MEDS ORDERED: PLAVIX PO (09:59)
[2016-10-14] MEDS ORDERED: PERCOCET 10/3251 TAB PO (09:59)
[2016-10-14] MEDS ORDERED: LOP25 PO (10:00)
[2016-10-14] MEDS ORDERED: L40 PO (10:00)
[2016-10-14] MEDS ORDERED: PRIN5 PO (10:00)
== END 2016-10-14 12:50 | disposition home or self-care (01) | DRG 233 ==
LOC: 5NO 08:58 → SDC/OF 10-11 11:59 → CVICU 10-11 18:02 → 5NO 10-12 14:43
PROVIDERS: Internal Medicine Cardiovascular Disease; Nurse Practitioner Family; Student in an Organized Health Care Education/Training Program; Thoracic Surgery (Cardiothoracic Vascular Surgery)
PROC: 4A023N7 Measurement of Cardiac Sampling and Pressure, Left Heart, Percutaneous Approach (ICD-10-PCS; principal; 2016-10-10)
PROC: B2111ZZ Fluoroscopy of Multiple Coronary Arteries using Low Osmolar Contrast (ICD-10-PCS; 2016-10-10)
PROC: 021309W Bypass Coronary Artery, Four or More Arteries from Aorta with Autologous Venous Tissue, Open Approach (ICD-10-PCS; 2016-10-10)
PROC: B2151ZZ Fluoroscopy of Left Heart using Low Osmolar Contrast (ICD-10-PCS; 2016-10-10)
PROC: 02100Z8 Bypass Coronary Artery, One Artery from Right Internal Mammary, Open Approach (ICD-10-PCS; 2016-10-10)
PROC: 02100Z9 Bypass Coronary Artery, One Artery from Left Internal Mammary, Open Approach (ICD-10-PCS; 2016-10-11)
PROC: 06BP0ZZ Excision of Right Saphenous Vein, Open Approach (ICD-10-PCS; 2016-10-11)
PROC: 5A1221Z Performance of Cardiac Output, Continuous (ICD-10-PCS; 2016-10-11)
PROC: B246ZZ4 Ultrasonography of Right and Left Heart, Transesophageal (ICD-10-PCS; 2016-10-11)
DX: I21.4 Non-ST elevation (NSTEMI) myocardial infarction (principal); I50.21 Acute systolic (congestive) heart failure; E11.9 Type 2 diabetes mellitus without complications; I25.10 Atherosclerotic heart disease of native coronary artery without angina pectoris; E78.5 Hyperlipidemia, unspecified; Z79.84 Long term (current) use of oral hypoglycemic drugs; Z79.82 Long term (current) use of aspirin; Z79.899 Other long term (current) drug therapy; Z88.2 Allergy status to sulfonamides; Z82.49 Family history of ischemic heart disease and other diseases of the circulatory system; I25.5 Ischemic cardiomyopathy; I11.0 Hypertensive heart disease with heart failure; E66.9 Obesity, unspecified; Z68.31 Body mass index [BMI] 31.0-31.9, adult
CPT/HCPCS: 31720; 36415; 71010; 71020; 80048; 80053; 80061; 81001; 82330; 82550; 82553; 82803; 82805; 82947; 82962; 83036; 83540; 83550; 83735; 84132; 84295; 84484; 85014; 85018; 85025; 85347; 85610; 85730; 86850; 86900; 86901; 87641; 93005; 93312; 93320; 93325; 93458; 93880; 94002; 94640; 94660; 94770; 99152; 99153; A9270-GY; C1713; C1769; C1887; C1894; C8929; J0282; J0690; J1644; J2150; J2250; J2370; J2405; J2440; J2720; J2795; J2930; J3010; J3475; P9045; P9047; Q9957; Q9967